=== PATIENT | female | born 1965 | race Caucasian/White ===

== ENCOUNTER 2025-04-23 14:20 | Emergency (ER) | payer OTHER, SELFPAY ==
[2025-04-23 14:32] VITALS: BP 141/83; PULSE 93; RESP 20; TEMP 36.5; O2SAT 98; BMI 39.7
--- NOTE | 2025-04-23 14:51 | ED.SKABFB ---
HPI - Skin/Abscess/Foreign Bdy General Chief complaint: Skin/Abscess/Foreign Body Stated complaint: abscess under boob Time Seen by Provider: 04/23/25 14:51 Source: patient Mode of arrival: Ambulatory Limitations: no limitations History of Present Illness HPI narrative: Ms. Guadalupe is a pleasant 59-year-old female with a past medical history of hypertension, stage IV CKD not on dialysis who presents to the emergency department with her for an abscess under her right breast x1 week. Patient states that she is visiting from her home in [place] via plane 2 weeks ago, she has been feeling slightly more fatigued since then but about 1 week ago she developed a small pimple under her right breast/on the abdominal wall. States that she has had abscesses in the past but they always pop and drain on their own however this 1 has been slightly bigger and is painful and hot. She has not taken any pain medications but states it is painful and causes her to be occasionally nauseous with no vomiting. No drainage from it yet, she did not attempt to pop it because it is large. State that she did have MRSA many years ago. No chest pain, shortness of breath, fevers, chills, abdominal pain. Prescriptions: Amlodipine, spironolactone, carvedilol, vitamin-D Related Data Previous Rx's ?Medication ?Instructions ?Recorded doxycycline hyclate 100 mg capsule 100 mg PO BID 7 days #14 caps 04/23/25 sodium zirconium cyclosilicate 10 10 g PO DAILY 1 month #30 ea 04/23/25 gram oral powder packet (Lokelma) Allergies Allergy/AdvReac Type Severity Reaction Status Date / Time No Known Drug Allergies Allergy Verified 04/23/25 14:32 Review of Systems Review of Systems ROS Unobtainable: All systems reviewed & are unremarkable except as noted in HPI and below Patient History Smoking Status: Never smoker Exam Narrative Exam Narrative: GENERAL: 59 year old patient appears stated age. Overweight patient, in no acute distress. HEAD: Atraumatic. Normocephalic. EYES: Extraocular motions intact. No scleral icterus. No injection or drainage. CARDIOVASCULAR: Regular rate and rhythm. RESPIRATORY: ?Nonlabored respirations. ?Speaking in clear, full sentences. ?Clear to auscultation. GASTROINTESTINAL: Superficial 2 cm round fluctuant abscess below the right breast on the abdominal wall with 3 cm of surrounding erythema, no induration. No active drainage. Remainder of abdomen soft, non-tender, nondistended. EXTREMITIES: Mild BL LE nonpitting edema. No erythema or increased warmth. NEURO: AOx3. ?Clear speech. ?Moves all 4 extremities appropriately. SKIN: Warm, dry. Initial Vital Signs Initial Vital Signs: Vital Signs Temperature 97.7 F 04/23/25 14:32 Pulse Rate 93 H 04/23/25 14:32 Respiratory Rate 20 04/23/25 14:32 Blood Pressure 141/83 H 04/23/25 14:32 Pulse Oximetry 98 04/23/25 14:32 Oxygen Delivery Method Room Air 04/23/25 14:32 Procedures Abscess I/D I&D #1: Site: abdomen (below R breast fold) Side (if applicable): right Local Anesthetic: lidocaine 1% and with epi Amount of anesthesia used (mL): 2 Technique: incised with #11 blade Amount of fluid expressed (mL): 5 Irrigation: Yes Packing used?: none Complications: other (none) Course Orders Ordered: ED Orders 04/23/25 14:50 BMP [Basic Metabolic Panel] Stat CBC Auto Diff [Complete Blood Count AUTO DIFF] Stat 04/23/25 15:30 Wound Culture and Gram Stain Stat Discontinued Medications Doxycycline Hyclate (Doxycycline Hyclate 100 Mg Tablet) 100 mg PO NOW ONE Stop: 04/23/25 15:42 Last Admin: 04/23/25 16:13 Dose: 100 mg Lidocaine/Epinephrine (Lidocaine 1% W/Epi 10ml) 5 ml SUBCUT NOW ONE Stop: 04/23/25 15:05 Last Admin: 04/23/25 15:13 Dose: 5 ml Vital Signs Vital signs: Vital Signs - 8 hr 04/23/25 14:32 Temperature 97.7 F Pulse Rate 93 H Respiratory Rate 20 Blood Pressure 141/83 H Pulse Oximetry 98 Oxygen Delivery Method Room Air MDM - Skin/Abscess/Foreign Bdy Medical Records Medical records narrative: None available for review Lab Data 04/23/25 14:50 04/23/25 14:50 Labs: Lab Results 04/23/25 Range/Units 14:50 WBC 6.4 (4.5-11.0) X10^3/uL RBC 3.55 L (4.0-5.2) X10^6/uL Hgb 10.2 L (12.0-16.0) g/dL Hct 31.4 L (36-46) % MCV 88.5 (80-100) fL MCH 28.8 (26-34) PG MCHC 32.5 (30-36) % RDW 14.3 (11.6-14.8) % Plt Count 216 (150-400) X10^3/uL Neut % (Auto) 69.6 (50-75) % Lymph % (Auto) 20.7 L (25-40) % [place] % (Auto) 6.8 (3-14) % Eos % (Auto) 2.1 (2-4) % Baso % (Auto) 0.8 (0-2) % Neut # (Auto) 4400 (0689-7098) /uL Lymph # (Auto) 1300 (4828-2818) /uL [place] # (Auto) 400 (0-900) /uL Eos # (Auto) 100 (0-450) /uL Baso # (Auto) 0 (0-100) /uL Sodium 140 (137-145) mmol/L Potassium 5.5 H (3.4-5.1) mmol/L Chloride 112 H (98-107) mmol/L Carbon Dioxide 17 L (22-32) mmol/L BUN 43 H (7-17) mg/dL Creatinine 3.06 H (0.52-1.04) mg/dL Estimated GFR 17 L (>60) mL/min BUN/Creatinine Ratio 14.1 (6-22) Glucose 162 H (70-99) mg/dL Calcium 8.8 (8.4-10.2) mg/dL [facility] Narrative Medical decision making narrative: 59-year-old female with a past medical history of hypertension, stage IV CKD not on dialysis who presents to the emergency department with her for an abscess under her right breast x1 week. Differential diagnosis includes but is not limited to abscess, MRSA, cellulitis, etc. On exam patient is in no acute distress, nontoxic appearing, vital signs appropriate. She has a 2 cm fluctuant superficial abscess below the right breast on the abdominal wall with mild surrounding erythema. She is afebrile. She does have some mild bilateral lower extremity edema that she states has been present since plane ride, no unilateral swelling calf tenderness or cellulitis. Will obtain a CBC with BMP, wound culture, I&D. Patient tolerated I and D well, moderate amount of purulence was expressed, wound culture obtained, wound was cleansed and nonadherent dressing applied. Labs reveal normal WBC count 6.4, hemoglobin low at 10.2, patient states that she does have anemia. Normal neutrophil count. Sodium normal 140, potassium elevated 5.5, BUN elevated 43 creatinine 3.06 GFR 17. Patient states she is unsure of her exact GFR but she knows it is ?all the way at the bottom of stage IV CKD? and her potassium also is chronically elevated, she was taking Lokelma but ran out. We will treat patient as superficial cutaneous abdominal wall abscess with doxycycline b.i.d., discussed daily wound care. Doxycycline does not need to be renally dosed. We will also refill her low, and recommended she follow up promptly with her PCP and [employer]. Discussed ED return is. Verbalized understanding of all information is agreeable to the plan. She is stable for discharge home. Discharge Plan Departure Patient Disposition: Home Clinical Impression: Hyperkalemia Cutaneous abscess Qualifiers: Site of cutaneous abscess: trunk Site of cutaneous abscess of trunk: abdominal wall Qualified Code(s): L02.211 - Cutaneous abscess of abdominal wall CKD (chronic kidney disease) Qualifiers: Chronic kidney disease stage: stage 4 (GFR 15-29) Qualified Code(s): N18.4 - Chronic kidney disease, stage 4 (severe) Instructions: DI for Skin Abscess Activity Restrictions/Additional Instructions: Dear Ms. Guadalupe, Thank you for coming to the emergency department. Today you were treated for an abscess which we drained. Please complete the full 7 day course of doxycycline antibiotics. Please keep gauze or a dressing over this abscess at all times and keep it clean, you may wash it with warm soapy water 1-2 times a day. Warm compresses can help continue drainage. Your lab work today did reveal that your potassium is slightly high at 5.5. I have sent a refill of your Lokelma, which helps to lower potassium. Please increase hydration with water and avoid excess potassium consumption. Prescriptions sent to [facility]. Please follow up with your primary care doctor within the next 2-3 days for ER follow-up. (If you do not have a PCP you can call [phone]. ?to schedule an appointment with an [facility] Primary Care Provider) IF YOU DEVELOP ANY NEW OR WORSENING SYMPTOMS, RETURN TO THE ER! Please read the attached instructions, they highlight more specific treatments and interventions for you at home. Thank you for letting me participate in your care, Yue He PA-C Prescriptions: New Lokelma 10 gram powder in packet 10 g PO DAILY 30 Days Qty: 30 0RF doxycycline hyclate 100 mg capsule 100 mg PO BID 7 Days Qty: 14 0RF Stand Alone Forms: Patient Portal/API
[2025-04-23] MEDS: LIDOCAINE 1% W/EPI 10ML 5 ML SUBCUT (15:13)
[2025-04-23 15:20] LABS: Add Manual Diff / Slide Review NO; Basophils Absolute Auto 0 /uL (0-100); Basophils Percent Auto 0.8 % (0-2); Eosinophils Absolute Auto 100 /uL (0-450); Eosinophils Percent Auto 2.1 % (2-4); Hematocrit 31.4 % (36-46); Hemoglobin 10.2 g/dL (12.0-16.0); Lymphocytes Absolute Auto 1300 /uL (1100-4500); Lymphocytes Percent Auto 20.7 % (25-40); Mean Corpuscular HGB Conc 32.5 % (30-36); Mean Corpuscular Hemoglobin 28.8 PG (26-34); Mean Corpuscular Volume 88.5 fL (80-100); Monocytes Absolute Auto 400 /uL (0-900); Monocytes Percent Auto 6.8 % (3-14); Neutrophils Absolute Auto 4400 /uL (1500-7000); Neutrophils Percent Auto 69.6 % (50-75); Platelet Count 216 X10^3/uL (150-400); Red Blood Cell Count 3.55 X10^6/uL (4.0-5.2); Red Cell Distribution Width 14.3 % (11.6-14.8); White Blood Cell Count 6.4 X10^3/uL (4.5-11.0)
[2025-04-23 15:22] LABS: BUN Creatinine Ratio 14.1 (6-22); Blood Urea Nitrogen 43 mg/dL (7-17); Calcium 8.8 mg/dL (8.4-10.2); Carbon Dioxide 17 mmol/L (22-32); Chloride 112 mmol/L (98-107); Estimated Glomerular Filt Rate 17 mL/min (>60); Glucose 162 mg/dL (70-99); HEMOLYSIS < 15 (0-50); Potassium 5.5 mmol/L (3.4-5.1); Sodium 140 mmol/L (137-145)
[2025-04-23] MEDS: DOXYCYCLINE HYCLATE 100 MG TABLET PO (16:13)
[2025-04-23 16:30] VITALS: TEMP 36.8
== END 2025-04-23 16:31 | disposition home or self-care (01) ==
PROVIDERS: Emergency Provider Physician Assistant
DX: L02.211 Cutaneous abscess of abdominal wall (principal); N18.4 Chronic kidney disease, stage 4 (severe); E87.5 Hyperkalemia
CPT/HCPCS: 10060; 80048; 85025; 87070; 87075; 87077; 87205; 99283